=== PATIENT | male | born 1950 | race African-American/Black ===

== ENCOUNTER 2019-11-01 07:02 | Emergency (ER) | payer OTHER ==
[~2019-11-01] VITALS: Ht 177.8 cm; Wt 99.0 kg
[2019-11-01] MEDS ORDERED: KETOROLAC 30MG/ML VIAL IV STA (07:13)
[2019-11-01] MEDS ORDERED: SODIUM CHLORIDE 0.9% 1,000 ML IV ONE (07:13)
[2019-11-01] MEDS ORDERED: ONDANSETRON HCL 4MG/2ML INJ IV STA (07:13)
[2019-11-01 08:30] LABS: BASOPHILS % 0.3 % (0.0-2.0); EOSINOPHILS % 0.9 % (0.0-5.0); HEMATOCRIT. 36.8 % (42.0-52.0); HEMOGLOBIN. 12.4 g/dL (14.0-18.0); LYMPHOCYTES % 29.3 % (20.0-50.0); MEAN CORPUSCULAR HEMOGLOBIN 36.3 pg (28.0-32.0); MEAN CORPUSCULAR VOLUME 107.9 fL (80.0-94.0); MEAN PLATELET VOLUME 7.7 fl (7.4-10.4); MONOCYTES % 4.8 % (2.0-8.0); NEUTROPHILS % 64.7 % (40.0-76.0); PLATELET 144 x1000/uL (130-400); RED BLOOD CELL COUNT 3.41 mill/uL (4.7-6.1); RED CELL DISTRIBUTION WIDTH 15.7 % (11.6-14.6)
[2019-11-01 08:38] LABS: CHLORIDE 106 mEq/L (98-107)
[2019-11-01 08:51] LABS: PROTHROMBIN TIME 9.8 sec (9.6-11.0)
[2019-11-01 09:24] LABS: CLARITY URINE CLEAR (CLEAR); COLOR URINE ORANGE (YELLOW); KETONES URINE TRACE (NEGATIVE); LEUKOCYTE ESTERASE URINE NEGATIVE (NEGATIVE); NITRITE URINE NEGATIVE (NEGATIVE); OCCULT BLOOD URINE 3+ (NEGATIVE); PH URINE >=9.0 (4.5-8.0); PROTEIN URINE NEGATIVE (NEGATIVE); SPECIFIC GRAVITY URINE 1.009 (1.005-1.030); UROBILINOGEN URINE 0.2 E.U./dL (0.2-1.0)
[2019-11-01] MEDS ORDERED: FENTANYL CITRATE/PF 50MCG/ML 2ML VIAL IV NR (09:45)
[2019-11-01] MEDS ORDERED: CEFTRIAXONE 1 G PREMIX 50 ML IV ONE (11:30)
[2019-11-01] MEDS ORDERED: KETOROLAC 30MG/ML VIAL IV ONE (12:45)
[2019-11-01 13:32] VITALS: BP 168/92
== END 2019-11-01 13:50 | disposition home or self-care (01) ==
LOC: ER 07:40
DX: S22.31XA Fracture of one rib, right side, initial encounter for closed fracture (principal); N20.0 Calculus of kidney; M25.561 Pain in right knee; N13.30 Unspecified hydronephrosis; N23 Unspecified renal colic; D64.9 Anemia, unspecified; R31.9 Hematuria, unspecified; V49.49XA Driver injured in collision with other motor vehicles in traffic accident, initial encounter; Y93.89 Activity, other specified; Y92.89 Other specified places as the place of occurrence of the external cause; Y99.8 Other external cause status
CPT/HCPCS: 36415; 74176; 80053; 81003; 83690; 85025; 85610; 96365; 96375; 96376; 99284; J0696; J1885; J2405; J3010; J7030